=== PATIENT | female | born 1975 | race Two or more races ===

== ENCOUNTER 2018-03-30 14:51 | Outpatient (CLI) | payer OTHER | END 2018-03-30 15:10 | disposition home or self-care (01) | LOC: MAMO-SONO 14:51 | DX: Z12.31 Encounter for screening mammogram for malignant neoplasm of breast (principal); N64.4 Mastodynia ==

== ENCOUNTER 2019-04-04 14:57 | Outpatient (CLI) | payer OTHER | END 2019-04-04 16:02 | disposition home or self-care (01) | LOC: MAMO-SONO 14:57 | DX: Z12.31 Encounter for screening mammogram for malignant neoplasm of breast (principal); Z87.898 Personal history of other specified conditions ==

== ENCOUNTER 2020-06-12 10:26 | Outpatient (CLI) | payer OTHER | END 2020-06-12 10:44 | disposition home or self-care (01) | LOC: MAMO-SONO 10:26 | PROVIDERS: ATTEND Family Medicine | DX: Z12.31 Encounter for screening mammogram for malignant neoplasm of breast (principal); D49.3 Neoplasm of unspecified behavior of breast ==

== ENCOUNTER 2021-06-18 14:07 | Outpatient (CLI) | payer OTHER | END 2021-06-18 14:10 | disposition home or self-care (01) | LOC: MAMO-SONO 14:07 | PROVIDERS: ATTEND Family Medicine | DX: N60.12 Diffuse cystic mastopathy of left breast (principal); Z12.31 Encounter for screening mammogram for malignant neoplasm of breast; R22.1 Localized swelling, mass and lump, neck; E04.1 Nontoxic single thyroid nodule ==